=== PATIENT | female | born 1955 | race Caucasian/White ===

== ENCOUNTER 2022-10-20 09:38 | Day surgery (SDC) | payer MEDICARE ==
[2022-10-20] VITALS (10 sets, daily range): BP systolic 89–125; BP diastolic 40–80
[~2022-10-20] VITALS: Ht 152.4 cm; Wt 68.4 kg
[~2022-10-20 09:38] MED LIST: ARIP10TA57 PO; BUPR1PAT23; BUSP7.5T5 PO; CALC1TAB PO; FLEC100T PO; FLUO40CA10 PO; FLUO40CR9; HYDR-3973 PO; LETR2.5T23 PO; LEVO88TA7 PO; METH20TA42 PO; MIRA50TA PO; RIVA20TA PO; cholecalciferol PO
[2022-10-20] MEDS ORDERED: normal saline 1,000 ML IV SCH (09:55)
[2022-10-20] MEDS ORDERED: diphenhydrAMINE 25mg capsule PO PRN (09:55)
[2022-10-20] MEDS ORDERED: CLOP75TA34 PO (10:24)
[2022-10-20] MEDS ORDERED: ARIP10TA15 PO (10:24)
[2022-10-20] MEDS ORDERED: METH-806 PO (10:24)
[2022-10-20] MEDS ORDERED: RED600CA2 PO (10:26)
[2022-10-20 10:48] LABS: BASOPHILS % (AUTO) 0.8 % (0-1); EOSINOPHILS # (AUTO) 0.1 X10'3 (0-0.9); EOSINOPHILS % (AUTO) 1.6 % (0-6); HEMATOCRIT 35.4 % (35.0-45.0); HEMOGLOBIN 11.2 g/dl (12.0-16.0); LYMPHOCYTES # (AUTO) 1.5 X10'3 (1.1-4.8); LYMPHOCYTES % (AUTO) 35.7 % (21-51); MEAN CORPUSCULAR HEMOGLOBIN 28.9 PG (27.0-31.0); MEAN CORPUSCULAR HGB CONC 31.7 g/dL (33.0-36.5); MEAN CORPUSCULAR VOLUME 91.4 FL (78-98); MONOCYTES # (AUTO) 0.4 X10'3 (0-0.9); MONOCYTES % (AUTO) 9.3 % (2-12); NEUTROPHILS # (AUTO) 2.2 X10'3 (1.8-7.7); NEUTROPHILS % (AUTO) 52.6 % (42-75); PLATELET COUNT 232 X10'3 (140-440); RED BLOOD COUNT 3.87 X10'6 (4.20-5.60); RED CELL DISTRIBUTION WIDTH 14.3 % (11.5-14.5); WHITE BLOOD COUNT 4.1 X10'3 (4.5-11.0)
[2022-10-20 11:01] LABS: ALBUMIN 3.4 G/DL (3.4-5.0); ANION GAP 7 (8-16); BLOOD UREA NITROGEN 17 MG/DL (7-18); BUN/CREATININE RATIO 24.6 (6.6-38.0); CALCIUM 8.8 MG/DL (8.5-10.1); CHLORIDE 104 MMOL/L (99-107); CREATININE 0.69 MG/DL (0.40-0.90); GLUCOSE 95 MG/DL (70-104); MAGNESIUM 2.2 MG/DL (1.5-2.4); POTASSIUM 4.3 MMOL/L (3.5-5.1); SODIUM 140 MMOL/L (135-145); TOTAL CARBON DIOXIDE 28.6 MMOL/L (24-32); eGFR 85 ML/MIN
[2022-10-20] MEDS ORDERED: nitroGLYCERIN-Tridil 50MG/D5W 250 ML IV ONE (11:06)
[2022-10-20] MEDS ORDERED: iohexol 350 MG/ML 50ML vial IV ONE (11:06)
[2022-10-20] MEDS ORDERED: verapamil 2.5 mg/ml inj IV ONE (11:06)
[2022-10-20] MEDS ORDERED: heparin 1,000unit/ml 10ml vial 10 ML ONE (11:06)
[2022-10-20] MEDS ORDERED: iohexol 350MG/ML 100ml bottle IV ONE (11:06)
[2022-10-20] MEDS ORDERED: midazolam 1 mg/ML 2ml injection ONE (11:06)
[2022-10-20] MEDS ORDERED: fentaNYL/PF 50MCG/1 ML 2ML syringe ONE (11:06)
[2022-10-20] MEDS ORDERED: LIDOcaine 1% 30ml preserv. free vial ONE (11:06)
[2022-10-20] MEDS ORDERED: normal saline 1000ml 1,000 ML IV SCH (13:00)
[2022-10-20] MEDS ORDERED: proCHLORperazine 10 MG/2 ml inj IV PRN (13:00)
[2022-10-20] MEDS ORDERED: ondansetron/PF 4mg/2ml inj IV PRN (13:00)
[2022-10-20] MEDS ORDERED: HYDROcodone/acetaminophen 5mg/325mg tablet PO PRN (13:00)
[2022-10-20] MEDS ORDERED: HYDROcodone/acetaminophen 10/325mg tab PO PRN (13:00)
== END 2022-10-20 16:00 | disposition home or self-care (01) ==
LOC: SSTAY O 09:38
PROVIDERS: ATTEND Internal Medicine Cardiovascular Disease
DX: I25.118 Atherosclerotic heart disease of native coronary artery with other forms of angina pectoris (principal); E78.5 Hyperlipidemia, unspecified; I47.1 Supraventricular tachycardia; I45.2 Bifascicular block; I48.0 Paroxysmal atrial fibrillation; G47.30 Sleep apnea, unspecified; E03.9 Hypothyroidism, unspecified; C50.912 Malignant neoplasm of unspecified site of left female breast; G47.429 Narcolepsy in conditions classified elsewhere without cataplexy; F41.9 Anxiety disorder, unspecified; F32.A Depression, unspecified; K91.1 Postgastric surgery syndromes; Z95.5 Presence of coronary angioplasty implant and graft; Z79.01 Long term (current) use of anticoagulants; Z79.899 Other long term (current) drug therapy; Z90.710 Acquired absence of both cervix and uterus; Z98.890 Other specified postprocedural states; Z98.84 Bariatric surgery status; Z87.891 Personal history of nicotine dependence; Z88.5 Allergy status to narcotic agent; Z88.8 Allergy status to other drugs, medicaments and biological substances
CPT/HCPCS: 36415; 80048; 82948; 83735; 85025; 85610; 93458; 99152; A6258; C1751; C1769; C1894; J1644; J2250; J3010; J3490; J7030; Q9967; A6402

== ENCOUNTER 2022-12-08 11:24 | Day surgery (SDC) | payer MEDICARE ==
[~2022-12-08] VITALS: Ht 152.4 cm; Wt 69.1 kg
[2022-12-08] VITALS (7 sets, daily range): BP systolic 108–117; BP diastolic 55–78
[~2022-12-08 11:24] MED LIST changes: +ARIP10TA15 PO; -ARIP10TA57 PO; -BUPR1PAT23; -BUSP7.5T5 PO; +CLOP75TA34 PO; -FLUO40CR9; -HYDR-3973 PO; -LETR2.5T23 PO; +METH-806 PO; +RED600CA2 PO
[2022-12-08] MEDS ORDERED: normal saline 1000ml 1,000 ML IV SCH (11:50)
[2022-12-08] MEDS ORDERED: vancomycin/NS 1 GM in NS 250 ML IV ONE (11:50)
[2022-12-08] MEDS ORDERED: cefazolin 2gm/D5W 100mL 100 ML IV ONE (11:50)
[2022-12-08] MEDS ORDERED: NITR0.4T51 SL (12:05)
[2022-12-08] MEDS ORDERED: midazolam 1 mg/ML 2ml injection ONE ×3 (14:47→15:24)
[2022-12-08] MEDS ORDERED: LIDOCAINE 2%/EPI 1:100,000 inj. Multi-dose 20 ML VIAL ONE (14:47)
[2022-12-08] MEDS ORDERED: vancomycin 1,000mg inj ONE (14:47)
[2022-12-08] MEDS ORDERED: fentaNYL/PF 50MCG/1 ML 2ML syringe ONE (14:47)
[2022-12-08] MEDS ORDERED: HYDROcodone/acetaminophen 10/325mg tab PO PRN (16:25)
[2022-12-08] MEDS ORDERED: HYDROcodone/acetaminophen 5mg/325mg tablet PO PRN (16:25)
== END 2022-12-08 18:17 | disposition home or self-care (01) ==
LOC: SSTAY O 11:24
PROVIDERS: ATTEND Internal Medicine Cardiovascular Disease
DX: I49.5 Sick sinus syndrome (principal); I44.1 Atrioventricular block, second degree; F32.A Depression, unspecified; F41.9 Anxiety disorder, unspecified; G47.30 Sleep apnea, unspecified; I48.91 Unspecified atrial fibrillation; Z85.3 Personal history of malignant neoplasm of breast; I47.1 Supraventricular tachycardia; Z90.710 Acquired absence of both cervix and uterus; Z98.890 Other specified postprocedural states; Z90.49 Acquired absence of other specified parts of digestive tract; Z79.899 Other long term (current) drug therapy; Z88.6 Allergy status to analgesic agent; Z88.8 Allergy status to other drugs, medicaments and biological substances
CPT/HCPCS: 33208; 36415; 71045; 85610; 93005; C1769; C1785; C1898; J0690; J2250; J3010; J3370; J7030; 99152; 99153; A4565; A6258